=== PATIENT | male | born 1945 | race Caucasian/White ===

== ENCOUNTER 2023-05-23 03:28 | Emergency (ER) | payer BC, MEDICAID ==
[~2023-05-23] VITALS: Ht 162.6 cm; Wt 84.5 kg
[2023-05-23] MEDS ORDERED: AMIODARONE HCL 150 MG/3 ML VIAL IV ONE ×2 (03:34→03:55)
[2023-05-23] MEDS ORDERED: ASPIRIN 81 MG TAB.CHEW ONE (03:40)
[2023-05-23] MEDS ORDERED: NITROGLYCERIN OINT 1 GM PACKET TP ONE (03:40)
[2023-05-23] MEDS ORDERED: ENOXAPARIN SODIUM 80 MG/0.8 ML DISP.SYRIN SQ ONE (03:41)
[2023-05-23] MEDS: NITROGLYCERIN OINT 1 GM PACKET TP ONE (03:49)
[2023-05-23] MEDS: AMIODARONE HCL IV 150 MG in IV DEXTROSE 5% 100 ML IV ONE (03:49)
[2023-05-23] MEDS: ASPIRIN 81 MG TAB.CHEW PO ONE (03:49)
[2023-05-23] MEDS: ENOXAPARIN SODIUM 80 MG/0.8 ML DISP.SYRIN SQ ONE (03:51)
[2023-05-23] MEDS ORDERED: HYDROCODONE/APAP 5-325MG TABLET ONE (03:54)
[2023-05-23] MEDS: HYDROCODONE/APAP 5-325MG TABLET PO ONE (03:57)
[2023-05-23 04:07] LABS: BASOPHILS # (AUTO) 0.1 K/UL (0.0-0.2); EOSINOPHILS # (AUTO) 0.1 K/uL (0.0-0.7); HEMATOCRIT 36.3 % (36.7-47.1); HEMOGLOBIN 12.1 g/dL (12.5-16.3); LYMPHOCYTES # (AUTO) 1.4 K/uL (0.8-4.8); LYMPHOCYTES % (AUTO) 24.8 % (20.5-51.5); MEAN CORPUSCULAR HEMOGLOBIN 29.1 uug (23.8-33.4); MEAN CORPUSCULAR HGB CONC 33 g/dL (32.5-36.3); MEAN CORPUSCULAR VOLUME 87.4 fL (73.0-96.2); MONOCYTES # (AUTO) 0.5 K/uL (0.1-1.30); MONOCYTES % (AUTO) 8.5 % (0.0-11.0); NEUTROPHILS # (AUTO) 3.6 K/uL (1.8-8.9); NEUTROPHILS % (AUTO) 63.7 % (38.5-71.5); PLATELET COUNT (AUTO) 196 K/uL (152-348); RED BLOOD CELL COUNT(AUTO) 4.16 MIL/uL (4.06-5.63); RED CELL DISTRIBUTION WIDTH 16.1 % (12.1-16.2); WHITE BLOOD COUNT (AUTO) 5.6 K/uL (3.6-10.2)
[2023-05-23 04:08] LABS: DIFFERENTIAL COMMENT 1
[2023-05-23] MEDS: AMIODARONE HCL IV 900 MG in IV DEXTROSE 5% 500 ML IV ONE (04:27)
[2023-05-23] MEDS ORDERED: levoFLOXacin 750MG/D5W 150 ML IV ONE (04:29)
[2023-05-23 04:38] LABS: CARBON DIOXIDE 28 mmol/L (21-32); CHLORIDE 106 mmol/L (98-107); CREATININE 1.4 mg/dL (0.6-1.3); GLUCOSE 125 mg/dL (74-106); POTASSIUM 4.4 mmol/L (3.5-5.1); SODIUM SERUM 145 mmol/L (136-145); UREA NITROGEN, BLOOD 25 mg/dL (7-18)
[2023-05-23] MEDS: levoFLOXacin 750 MG/D5W 150 ML PIGGYBACK IV ONE (04:48)
[2023-05-23 04:50] LABS: ALANINE AMINOTRANSFERASE 33 U/L (16-63); ALBUMIN 3.1 g/dL (3.4-5.0); ALKALINE PHOSPHATASE 83 U/L (50-136); ASPARTATE AMINOTRANSFERASE 34 U/L (15-37); BILIRUBIN,DIRECT 0.1 mg/dL (0.0-0.2); BILIRUBIN,TOTAL 0.5 mg/dL (0.2-1.0); NT-PRO BNP 11853 pg/mL (0-125)
[2023-05-23 12:31] VITALS: BP 122/80; TEMP 98; O2SAT 99
== END 2023-05-23 12:36 | disposition home or self-care (01) ==
LOC: ER 03:32
DX: I48.20 Chronic atrial fibrillation, unspecified (principal); J18.1 Lobar pneumonia, unspecified organism; I10 Essential (primary) hypertension; R60.0 Localized edema; Z20.822 Contact with and (suspected) exposure to COVID-19; Z59.00 Homelessness unspecified
CPT/HCPCS: 99291; 93970; 96365; 71045; 96375; 87426; 80076; 80048; 83880; 85025; 85379; 85730; 87040 ×2; 84484 ×3; 36415; 93005; 96372; J0282 ×4; J1650; J1956; J7060 ×2; A4606; A4663

== ENCOUNTER 2024-03-11 15:10 | Inpatient (IN) | payer MEDICAID, MEDICARE, OTHER ==
[~2024-03-11] VITALS: Ht 167.6 cm; Wt 72.3 kg
[2024-03-11] MEDS ORDERED: IV NORMAL SALINE 1000 ML BAG IV ONE (15:30)
[2024-03-11 15:52] LABS: BASOPHILS # (AUTO) 0.1 K/UL (0.0-0.2); BASOPHILS % (AUTO) 1.2 % (0.0-2.0); DIFFERENTIAL COMMENT 0; EOSINOPHILS % (AUTO) 0.9 % (0.0-7.0); HEMOGLOBIN 11.6 g/dL (12.5-16.3); LYMPHOCYTES % (AUTO) 20.9 % (20.5-51.5); MEAN CORPUSCULAR HEMOGLOBIN 29.8 uug (23.8-33.4); MEAN CORPUSCULAR HGB CONC 33 g/dL (32.5-36.3); MEAN CORPUSCULAR VOLUME 89.8 fL (73.0-96.2); MONOCYTES # (AUTO) 0.5 K/uL (0.1-1.30); MONOCYTES % (AUTO) 10.6 % (0.0-11.0); NEUTROPHILS # (AUTO) 3.3 K/uL (1.8-8.9); NEUTROPHILS % (AUTO) 66.4 % (38.5-71.5); PLATELET COUNT (AUTO) 165 K/uL (152-348); RED CELL DISTRIBUTION WIDTH 15.6 % (12.1-16.2)
[2024-03-11 15:59] LABS: CARBON DIOXIDE 26 mmol/L (21-32); CHLORIDE 103 mmol/L (98-107); CREATININE 1.7 mg/dL (0.6-1.3); GLUCOSE 99 mg/dL (74-106); POTASSIUM 4.4 mmol/L (3.5-5.1); SODIUM SERUM 139 mmol/L (136-145); UREA NITROGEN, BLOOD 33 mg/dL (7-18)
[2024-03-11 16:07] LABS: ALANINE AMINOTRANSFERASE 38 U/L (16-63); ALBUMIN 3.4 g/dL (3.4-5.0); ALKALINE PHOSPHATASE 69 U/L (50-136); ASPARTATE AMINOTRANSFERASE 23 U/L (15-37); BILIRUBIN,DIRECT 0.2 mg/dL (0.0-0.2); BILIRUBIN,TOTAL 0.8 mg/dL (0.2-1.0); TOTAL PROTEIN, SERUM 6.5 g/dL (6.4-8.2)
[2024-03-11 16:10] LABS: MAGNESIUM 2.3 mg/dL (1.8-2.4)
[2024-03-11] MEDS ORDERED: FUROSEMIDE 40 MG/4 ML VIAL ONE (17:19)
[2024-03-11] MEDS ORDERED: DIGOXIN 500 MCG/2 ML AMP ONE (17:19)
[2024-03-11] MEDS ORDERED: ONDANSETRON ODT 4 MG TAB.RAPDIS ONE (17:19)
[2024-03-11] MEDS: FUROSEMIDE 40 MG/4 ML VIAL IV ONE (17:23)
[2024-03-11] MEDS: DIGOXIN 500 MCG/2 ML AMP IV ONE (17:23)
[2024-03-11] MEDS: ONDANSETRON ODT 4 MG TAB.RAPDIS SL ONE (17:23)
[2024-03-11] MEDS: AMIODARONE HCL IV 150 MG in IV DEXTROSE 5% 100 ML IV ONE (18:15)
[2024-03-11 19:03] LABS: *BILIRUBIN,URIN NEGATIVE (NEGATIVE); *BLOOD, URINE NEGATIVE (NEGATIVE); *CLARITY,URINE CLEAR (CLEAR); *COLOR,URINE LIGHT YELLOW (YELLOW); *KETONES,URINE NEGATIVE (NEGATIVE); *PROTEIN,URINE NEGATIVE (NEGATIVE); *UROBILINOGEN,URINE 0.2 E.U./dl (NORMAL); LEUKOCYTE ESTERASE ,URINE NEGATIVE (NEGATIVE); NITRITE, URINE NEGATIVE (NEGATIVE); UGLUCOSE NEGATIVE (NEGATIVE)
[2024-03-11] MEDS ORDERED: AMIODARONE HCL 150 MG/3 ML VIAL IV ONE (19:38)
[2024-03-11] MEDS: AMIODARONE HCL IV 450 MG in IV DEXTROSE 5% 250 ML IV PRN (19:55)
[2024-03-11] MEDS ORDERED: ACETAMINOPHEN 325 MG TABLET PO PRN (20:15)
[2024-03-11] MEDS ORDERED: MAGNESIUM HYDROXIDE 30 ML LIQUID UDC PO PRN (20:15)
[2024-03-11] MEDS ORDERED: REMEDY ESSENTIAL ZINC PASTE 113 GM TP PRN (20:15)
[2024-03-11] MEDS ORDERED: ONDANSETRON 4 MG/2 ML VIAL IV PRN (20:15)
[2024-03-11 22:15] VITALS: BP 127/71; TEMP 98.2; O2SAT 96
[2024-03-12] VITALS (9 sets, daily range): BP systolic 101–159; BP diastolic 53–98; TEMP 97.5–98.3; O2SAT 96–98
[2024-03-12] MEDS: PANTOPRAZOLE SODIUM 40 MG TABLET.DR PO SCH (06:28)
[2024-03-12 07:17] LABS: BASOPHILS # (AUTO) 0.1 K/UL (0.0-0.2); BASOPHILS % (AUTO) 1.2 % (0.0-2.0); EOSINOPHILS # (AUTO) 0.1 K/uL (0.0-0.7); EOSINOPHILS % (AUTO) 2.3 % (0.0-7.0); HEMATOCRIT 35.6 % (36.7-47.1); LYMPHOCYTES # (AUTO) 1.3 K/uL (0.8-4.8); LYMPHOCYTES % (AUTO) 24.5 % (20.5-51.5); MEAN CORPUSCULAR HEMOGLOBIN 30.5 uug (23.8-33.4); MEAN CORPUSCULAR HGB CONC 34 g/dL (32.5-36.3); MEAN CORPUSCULAR VOLUME 90.1 fL (73.0-96.2); MONOCYTES # (AUTO) 0.5 K/uL (0.1-1.30); MONOCYTES % (AUTO) 9.3 % (0.0-11.0); NEUTROPHILS # (AUTO) 3.3 K/uL (1.8-8.9); NEUTROPHILS % (AUTO) 62.7 % (38.5-71.5); PLATELET COUNT (AUTO) 149 K/uL (152-348); RED BLOOD CELL COUNT(AUTO) 3.95 MIL/uL (4.06-5.63); RED CELL DISTRIBUTION WIDTH 15.3 % (12.1-16.2); WHITE BLOOD COUNT (AUTO) 5.2 K/uL (3.6-10.2)
[2024-03-12 07:22] LABS: DIFFERENTIAL COMMENT 1
[2024-03-12 07:24] LABS: CALCIUM 8.9 mg/dL (8.5-10.1); CARBON DIOXIDE 28 mmol/L (21-32); CHLORIDE 103 mmol/L (98-107); CREATININE 1.8 mg/dL (0.6-1.3); GLUCOSE 102 mg/dL (74-106); MAGNESIUM 2.1 mg/dL (1.8-2.4); PHOSPHOROUS 3.7 mg/dL (2.5-4.9); POTASSIUM 4.6 mmol/L (3.5-5.1); SODIUM SERUM 140 mmol/L (136-145); UREA NITROGEN, BLOOD 33 mg/dL (7-18)
[2024-03-12] MEDS: DIGOXIN 125 MCG TABLET PO SCH (09:08)
[2024-03-12] MEDS: METOPROLOL TARTRATE 50 MG TABLET PO SCH (09:09)
[2024-03-12] MEDS: APIXABAN 5 MG TABLET PO SCH (09:12)
[2024-03-12] MEDS: FUROSEMIDE 40 MG/4 ML VIAL IV ONE (09:13)
[2024-03-12] MEDS: FUROSEMIDE 20 MG/2 ML VIAL IV SCH (21:02)
[2024-03-13] VITALS (7 sets, daily range): BP systolic 104–120; BP diastolic 67–75; TEMP 97.9–98.4; O2SAT 89–98
[2024-03-13 11:25] LABS: BASOPHILS # (AUTO) 0.1 K/UL (0.0-0.2); BASOPHILS % (AUTO) 1.1 % (0.0-2.0); EOSINOPHILS # (AUTO) 0.1 K/uL (0.0-0.7); EOSINOPHILS % (AUTO) 1.6 % (0.0-7.0); HEMATOCRIT 39.7 % (36.7-47.1); HEMOGLOBIN 13.1 g/dL (12.5-16.3); LYMPHOCYTES # (AUTO) 1.1 K/uL (0.8-4.8); LYMPHOCYTES % (AUTO) 20.6 % (20.5-51.5); MEAN CORPUSCULAR HEMOGLOBIN 29.7 uug (23.8-33.4); MEAN CORPUSCULAR HGB CONC 33 g/dL (32.5-36.3); MEAN CORPUSCULAR VOLUME 90.2 fL (73.0-96.2); MONOCYTES # (AUTO) 0.6 K/uL (0.1-1.30); MONOCYTES % (AUTO) 10.7 % (0.0-11.0); NEUTROPHILS # (AUTO) 3.4 K/uL (1.8-8.9); PLATELET COUNT (AUTO) 170 K/uL (152-348); RED CELL DISTRIBUTION WIDTH 15.3 % (12.1-16.2); WHITE BLOOD COUNT (AUTO) 5.2 K/uL (3.6-10.2)
[2024-03-13 11:40] LABS: DIFFERENTIAL COMMENT 1
[2024-03-13 11:42] LABS: ALANINE AMINOTRANSFERASE 33 U/L (16-63); ALBUMIN 3.2 g/dL (3.4-5.0); ALKALINE PHOSPHATASE 71 U/L (50-136); ASPARTATE AMINOTRANSFERASE 26 U/L (15-37); BILIRUBIN,TOTAL 1.1 mg/dL (0.2-1.0); CALCIUM 9.1 mg/dL (8.5-10.1); CARBON DIOXIDE 34 mmol/L (21-32); CHLORIDE 100 mmol/L (98-107); CREATININE 1.6 mg/dL (0.6-1.3); GLUCOSE 71 mg/dL (74-106); MAGNESIUM 2.2 mg/dL (1.8-2.4); PHOSPHOROUS 3.4 mg/dL (2.5-4.9); POTASSIUM 4.5 mmol/L (3.5-5.1); SODIUM SERUM 140 mmol/L (136-145); TOTAL PROTEIN, SERUM 6.8 g/dL (6.4-8.2); UREA NITROGEN, BLOOD 27 mg/dL (7-18)
[2024-03-13 12:48] LABS: *BILIRUBIN,URIN NEGATIVE (NEGATIVE); *BLOOD, URINE NEGATIVE (NEGATIVE); *CLARITY,URINE CLEAR (CLEAR); *COLOR,URINE YELLOW (YELLOW); *KETONES,URINE NEGATIVE (NEGATIVE); *PROTEIN,URINE NEGATIVE (NEGATIVE); *UROBILINOGEN,URINE 0.2 E.U./dl (NORMAL); LEUKOCYTE ESTERASE ,URINE NEGATIVE (NEGATIVE); NITRITE, URINE NEGATIVE (NEGATIVE); UGLUCOSE NEGATIVE (NEGATIVE)
[2024-03-13 12:54] LABS: *CREATININE,URINE 44.6 mg/dL (30-125); *SODIUM RNDM,URINE 88 mmol/L (40-220); *URINE TOTAL PROTEIN RANDOM < 6.0 mg/dL (<150/24HR)
[2024-03-14] VITALS (7 sets, daily range): BP systolic 102–127; BP diastolic 59–88; TEMP 97.9–98.3; O2SAT 95–98
[2024-03-14 06:23] LABS: BASOPHILS # (AUTO) 0.1 K/UL (0.0-0.2); BASOPHILS % (AUTO) 1.3 % (0.0-2.0); EOSINOPHILS # (AUTO) 0.2 K/uL (0.0-0.7); EOSINOPHILS % (AUTO) 2.9 % (0.0-7.0); HEMATOCRIT 39.7 % (36.7-47.1); HEMOGLOBIN 13.3 g/dL (12.5-16.3); LYMPHOCYTES # (AUTO) 1.3 K/uL (0.8-4.8); LYMPHOCYTES % (AUTO) 25.5 % (20.5-51.5); MEAN CORPUSCULAR HEMOGLOBIN 29.8 uug (23.8-33.4); MEAN CORPUSCULAR HGB CONC 34 g/dL (32.5-36.3); MEAN CORPUSCULAR VOLUME 88.9 fL (73.0-96.2); MONOCYTES # (AUTO) 0.6 K/uL (0.1-1.30); MONOCYTES % (AUTO) 11.1 % (0.0-11.0); NEUTROPHILS # (AUTO) 3.1 K/uL (1.8-8.9); NEUTROPHILS % (AUTO) 59.2 % (38.5-71.5); PLATELET COUNT (AUTO) 178 K/uL (152-348); RED BLOOD CELL COUNT(AUTO) 4.47 MIL/uL (4.06-5.63); RED CELL DISTRIBUTION WIDTH 15.4 % (12.1-16.2); WHITE BLOOD COUNT (AUTO) 5.2 K/uL (3.6-10.2)
[2024-03-14 06:46] LABS: ALANINE AMINOTRANSFERASE 31 U/L (16-63); ALBUMIN 3.1 g/dL (3.4-5.0); ALKALINE PHOSPHATASE 70 U/L (50-136); ASPARTATE AMINOTRANSFERASE 23 U/L (15-37); BILIRUBIN,TOTAL 0.9 mg/dL (0.2-1.0); CALCIUM 9.1 mg/dL (8.5-10.1); CARBON DIOXIDE 34 mmol/L (21-32); CHLORIDE 100 mmol/L (98-107); CREATINE KINASE, TOTAL 102 U/L (39-308); CREATININE 1.5 mg/dL (0.6-1.3); GLUCOSE 110 mg/dL (74-106); MAGNESIUM 1.6 mg/dL (1.8-2.4); PHOSPHOROUS 3.6 mg/dL (2.5-4.9); POTASSIUM 4.5 mmol/L (3.5-5.1); SODIUM SERUM 137 mmol/L (136-145); TOTAL PROTEIN, SERUM 6.7 g/dL (6.4-8.2); UREA NITROGEN, BLOOD 31 mg/dL (7-18)
[2024-03-14] MEDS: MAGNESIUM SULFATE/D5W 100 ML IV SCH (09:36)
[2024-03-14] MEDS ORDERED: MAGNESIUM SULFATE/D5W 100 ML IV SCH (09:45)
[2024-03-15 05:00] VITALS: BP 110/66; TEMP 98.3; O2SAT 96
[2024-03-15 07:35] VITALS: BP 157/83; TEMP 97.6; O2SAT 96
[2024-03-15] MEDS: FUROSEMIDE 40 MG TABLET PO SCH (09:06)
[2024-03-15] MEDS: METOPROLOL TARTRATE 50 MG TABLET PO SCH (09:07)
[2024-03-15] MEDS ORDERED: METO50TA16 PO (09:08)
[2024-03-15] MEDS ORDERED: DIGO125T5 PO (09:08)
[2024-03-15] MEDS ORDERED: APIX5TAB PO (09:08)
[2024-03-15] MEDS ORDERED: FURO40TA5 PO (09:08)
[2024-03-15 11:21] VITALS: BP 118/76; TEMP 98.2; O2SAT 100
[2024-03-16 05:10] LABS: PTH, INTACT 37 pg/mL (15-65)
[2024-03-16 15:07] LABS: A/G RATIO 1.1 (0.7-1.7); ALBUMIN 3.1 g/dL (2.9-4.4); ALPHA-1-GLOBULIN 0.2 g/dL (0.0-0.4); ALPHA-2-GLOBULIN 0.7 g/dL (0.4-1.0); BETA GLOBULIN 1.1 g/dL (0.7-1.3); GAMMA GLOBULIN 0.7 g/dL (0.4-1.8); GLOBULIN, TOTAL 2.8 g/dL (2.2-3.9); M-SPIKE Not Observed g/dL (Not Observed); PROTEIN, TOTAL 5.9 g/dL (6.0-8.5)
== END 2024-03-15 14:45 | disposition home or self-care (01) | DRG 291 ==
LOC: ER 15:10 → TELE3 20:44
PROVIDERS: ADMIT Internal Medicine; ATTEND Internal Medicine
DX: I13.0 Hypertensive heart and chronic kidney disease with heart failure and stage 1 through stage 4 chronic kidney disease, or unspecified chronic kidney disease (principal); I50.33 Acute on chronic diastolic (congestive) heart failure; N17.0 Acute kidney failure with tubular necrosis; I48.20 Chronic atrial fibrillation, unspecified; Z59.02 Unsheltered homelessness; I25.5 Ischemic cardiomyopathy; I25.10 Atherosclerotic heart disease of native coronary artery without angina pectoris; Z95.1 Presence of aortocoronary bypass graft; E83.42 Hypomagnesemia; R29.6 Repeated falls; N18.9 Chronic kidney disease, unspecified; M15.9 Polyosteoarthritis, unspecified; Z79.01 Long term (current) use of anticoagulants; Z79.899 Other long term (current) drug therapy; Z95.3 Presence of xenogenic heart valve; M25.531 Pain in right wrist; H53.8 Other visual disturbances
CPT/HCPCS: 36415; 70450; 71045; 83605; 83735; 83970; 84100; 84155; 84165; 84300; 84484; 85025; 85610; 85730; 87040; 93307; A4606; A4663; G0378; J0282; J1160; J1940; J3475; Q0162

== ENCOUNTER 2024-03-29 10:50 | Emergency (ER) | payer OTHER ==
[~2024-03-29] VITALS: Ht 172.7 cm; Wt 93.0 kg
[~2024-03-29 10:50] MED LIST: APIX5TAB PO; DIGO125T5 PO; FURO40TA5 PO; METO50TA16 PO
[2024-03-29] MEDS ORDERED: ROSU20TA32 PO (11:15)
[2024-03-29] MEDS ORDERED: METO-358 PO (11:15)
[2024-03-29] MEDS ORDERED: METOPROLOL TARTRATE 50 MG TABLET ONE (11:51)
[2024-03-29] MEDS ORDERED: DIGOXIN 500 MCG/2 ML AMP ONE (11:51)
[2024-03-29] MEDS ORDERED: FUROSEMIDE 40 MG/4 ML VIAL ONE (11:51)
[2024-03-29 11:54] LABS: BASOPHILS # (AUTO) 0.1 K/UL (0.0-0.2); BASOPHILS % (AUTO) 0.9 % (0.0-2.0); EOSINOPHILS % (AUTO) 0.4 % (0.0-7.0); HEMOGLOBIN 12.6 g/dL (12.5-16.3); LYMPHOCYTES # (AUTO) 0.9 K/uL (0.8-4.8); LYMPHOCYTES % (AUTO) 15.3 % (20.5-51.5); MEAN CORPUSCULAR HEMOGLOBIN 30.1 uug (23.8-33.4); MEAN CORPUSCULAR HGB CONC 33 g/dL (32.5-36.3); MONOCYTES # (AUTO) 0.5 K/uL (0.1-1.30); MONOCYTES % (AUTO) 8.7 % (0.0-11.0); NEUTROPHILS # (AUTO) 4.6 K/uL (1.8-8.9); NEUTROPHILS % (AUTO) 74.7 % (38.5-71.5); PLATELET COUNT (AUTO) 169 K/uL (152-348); RED BLOOD CELL COUNT(AUTO) 4.18 MIL/uL (4.06-5.63); RED CELL DISTRIBUTION WIDTH 16.2 % (12.1-16.2); WHITE BLOOD COUNT (AUTO) 6.1 K/uL (3.6-10.2)
[2024-03-29] MEDS: FUROSEMIDE 40 MG/4 ML VIAL IV ONE (11:54)
[2024-03-29] MEDS: DIGOXIN 500 MCG/2 ML AMP IV ONE (12:03)
[2024-03-29 12:04] VITALS: BP 137/117
[2024-03-29] MEDS: METOPROLOL TARTRATE 50 MG TABLET PO ONE (12:04)
[2024-03-29 12:08] LABS: DIFFERENTIAL COMMENT 1
[2024-03-29 12:09] LABS: CALCIUM 9.1 mg/dL (8.5-10.1); CARBON DIOXIDE 24 mmol/L (21-32); CHLORIDE 108 mmol/L (98-107); CREATININE 1.5 mg/dL (0.6-1.3); GLUCOSE 105 mg/dL (74-106); POTASSIUM 4.6 mmol/L (3.5-5.1); SODIUM SERUM 144 mmol/L (136-145); UREA NITROGEN, BLOOD 38 mg/dL (7-18)
[2024-03-29 12:22] LABS: ALANINE AMINOTRANSFERASE 41 U/L (16-63); ALBUMIN 3.2 g/dL (3.4-5.0); ALKALINE PHOSPHATASE 76 U/L (50-136); ASPARTATE AMINOTRANSFERASE 49 U/L (15-37); BILIRUBIN,DIRECT 0.3 mg/dL (0.0-0.2); BILIRUBIN,TOTAL 0.9 mg/dL (0.2-1.0); NT-PRO BNP 13095 pg/mL (0-125); TOTAL PROTEIN, SERUM 6.5 g/dL (6.4-8.2)
[2024-03-29 16:44] VITALS: O2SAT 96
== END 2024-03-29 16:30 | disposition short-term general hospital (02) ==
LOC: ER 10:50
DX: I48.91 Unspecified atrial fibrillation (principal); I11.0 Hypertensive heart disease with heart failure; I50.9 Heart failure, unspecified; Z79.899 Other long term (current) drug therapy; Z95.1 Presence of aortocoronary bypass graft; Z59.00 Homelessness unspecified
CPT/HCPCS: 99291; 96374; 96375; 80076; 80048; 83880; 85025; 84484; 36415; 71045; 93005; J1160; J1940; A4606; A4663; J7120

== ENCOUNTER 2024-04-15 21:38 | Emergency (ER) | payer OTHER ==
[~2024-04-15] VITALS: Ht 170.2 cm; Wt 72.6 kg
[~2024-04-15 21:38] MED LIST changes: +METO-358 PO; -METO50TA16 PO; +ROSU20TA32 PO
[2024-04-16 01:26] LABS: BASOPHILS # (AUTO) 0.1 K/UL (0.0-0.2); BASOPHILS % (AUTO) 1.1 % (0.0-2.0); EOSINOPHILS % (AUTO) 0.8 % (0.0-7.0); LYMPHOCYTES # (AUTO) 0.9 K/uL (0.8-4.8); LYMPHOCYTES % (AUTO) 17.8 % (20.5-51.5); MEAN CORPUSCULAR HEMOGLOBIN 29.3 uug (23.8-33.4); MEAN CORPUSCULAR HGB CONC 33 g/dL (32.5-36.3); MONOCYTES # (AUTO) 0.4 K/uL (0.1-1.30); MONOCYTES % (AUTO) 8.5 % (0.0-11.0); NEUTROPHILS # (AUTO) 3.6 K/uL (1.8-8.9); NEUTROPHILS % (AUTO) 71.8 % (38.5-71.5); PLATELET COUNT (AUTO) 168 K/uL (152-348); RED BLOOD CELL COUNT(AUTO) 4.11 MIL/uL (4.06-5.63); RED CELL DISTRIBUTION WIDTH 16.4 % (12.1-16.2)
[2024-04-16 01:30] VITALS: O2SAT 96
[2024-04-16 01:37] LABS: DIFFERENTIAL COMMENT 1
[2024-04-16 01:51] LABS: ALANINE AMINOTRANSFERASE 56 U/L (16-63); ALBUMIN 3.2 g/dL (3.4-5.0); ALKALINE PHOSPHATASE 88 U/L (50-136); ASPARTATE AMINOTRANSFERASE 82 U/L (15-37); BILIRUBIN,DIRECT 0.3 mg/dL (0.0-0.2); BILIRUBIN,TOTAL 0.8 mg/dL (0.2-1.0); CALCIUM 8.2 mg/dL (8.5-10.1); CARBON DIOXIDE 26 mmol/L (21-32); CHLORIDE 109 mmol/L (98-107); CREATININE 1.8 mg/dL (0.6-1.3); GLUCOSE 129 mg/dL (74-106); NT-PRO BNP 11606 pg/mL (0-125); POTASSIUM 4.6 mmol/L (3.5-5.1); SODIUM SERUM 148 mmol/L (136-145); TOTAL PROTEIN, SERUM 6.4 g/dL (6.4-8.2); UREA NITROGEN, BLOOD 46 mg/dL (7-18)
[2024-04-16] MEDS ORDERED: FUROSEMIDE 40 MG/4 ML VIAL ONE (03:25)
[2024-04-16] MEDS: FUROSEMIDE 40 MG/4 ML VIAL IV ONE (03:35)
[2024-04-16 03:36] VITALS: BP 121/90
[2024-04-16] MEDS: NITROGLYCERIN OINT 1 GM PACKET TP ONE (03:36)
[2024-04-16] MEDS ORDERED: NITROGLYCERIN OINT 1 GM PACKET TP ONE (03:36)
== END 2024-04-16 06:13 ==
LOC: ER 21:42
DX: I11.0 Hypertensive heart disease with heart failure (principal); I25.10 Atherosclerotic heart disease of native coronary artery without angina pectoris; I48.91 Unspecified atrial fibrillation; I50.9 Heart failure, unspecified; Z79.899 Other long term (current) drug therapy; Z95.1 Presence of aortocoronary bypass graft; Z59.00 Homelessness unspecified
CPT/HCPCS: 99291; 93970; 96374; 80076; 80048; 83880; 85025; 85730; 84484 ×2; 36415; 71045; 93005; J1940; A4606; A4663